=== PATIENT | female | born 1985 | race African-American/Black ===

== ENCOUNTER 2016-08-06 08:06 | Emergency (ER) | payer MEDICAID ==
[~2016-08-06] VITALS: Ht 167.6 cm; Wt 65.0 kg
[~2016-08-06 08:06] MED LIST: CYCL5TAB PO; NAPR1TAB34 PO
[2016-08-06 08:07] VITALS: BP 110/68; PULSE 80; RESP 16; TEMP 98; O2SAT 100
[2016-08-06 08:17] VITALS: BP 109/59; PULSE 70; RESP 16; TEMP 98.6; O2SAT 99
--- NOTE | 2016-08-06 08:24 | PD ---
HPI Chief Complaint: Abdominal Pain Time Seen by Provider: 08:22 Travel History International Travel<30 days: No Contact w/Intl Traveler<30days: No Traveled to known affect area: No History of Present Illness HPI 31-year-old female came to the emergency room with intense pelvic pain going to her lower back. Patient says that this pain has been there for 2 weeks but comes and goes. When the pain comes it makes her bend over double over because of the severe nature. No history of hematuria, dysuria. She did have an unprotected sex once every 10 then soon after the symptoms started. There was a bedside urine done which was negative. Vital signs are stable. Currently she seems uncomfortable. No aggravating or relieving factors. [facility] Past Medical History Narrative Medical List of her past medical, surgical, social and family history is reviewed from the nursing note. Medical History: Denies Significant Hx Cardiovascular Problems: No Diminished Hearing: No Gastrointestinal Disorders: No Genitourinary: No Musculoskeletal: No Neurologic: No Reproductive: Yes (OVLVAIAN CYST ) Respiratory: No Immunizations Current: Yes Tetanus Vaccination: Unknown ?: Unknown : 3 Para: 2 Miscarriage: 0 : 1 Past Surgical History Other Surgery: Yes (abscessed removed right arm) Social History Alcohol Use: No Tobacco Use: Yes (5 cigarettes per day) Substance Use: No Allergies-Medications (Allergen,Severity, Reaction): Coded Allergies: Lortab (Verified Adverse Reaction, Intermediate, DIZZY, 08/06/16) PT STATES SHE IS CURRENTLY TAKING. Percocet (Verified Adverse Reaction, Intermediate, DIZZY, 08/06/16) Comments List of her allergies reviewed from the nursing note. Reported Meds & Prescriptions Reported Meds & Active Scripts Active Doxycycline Hyclate 100 Mg Cap 100 Mg PO BID 7 Days Flagyl (Metronidazole) 250 Mg Tab 250 Mg PO TID 7 Days Macrobid (Nitrofurantoin Monoh/Nitrofur Macro) 100 Mg Cap 100 Mg PO BID 7 Days Naproxen EC (Naproxen) 500 Mg Tabdr 500 Mg PO BID PRN Flexeril (Cyclobenzaprine HCl) 5 Mg Tab 5 Mg PO TID PRN Narrative Medication List of her home medications reviewed from the nursing note. Review of Systems Except as stated in HPI: all other systems reviewed are Neg Physical Exam Narrative GENERAL: Awake, alert, anxious, mild distress SKIN: Warm and dry. HEAD: Atraumatic. Normocephalic. EYES: Pupils equal and round. No scleral icterus. No injection or drainage. ENT: No nasal bleeding or discharge. Mucous membranes pink and moist. NECK: Trachea midline. No JVD. CARDIOVASCULAR: Regular rate and rhythm. No murmur appreciated. RESPIRATORY: No accessory muscle use. Clear to auscultation. Breath sounds equal bilaterally. GASTROINTESTINAL: Abdomen soft, non-tender, nondistended. Hepatic and splenic margins not palpable. : External exam was within normal limits. Speculum exam showed scant discharge which was whitish with no odor in the vaginal vault. Cervix appeared to be within normal limit. Swabs were collected. Positive CMT and bilateral adnexal tenderness. MUSCULOSKELETAL: No obvious deformities. No clubbing. No cyanosis. No edema. NEUROLOGICAL: Awake and alert. No obvious cranial nerve deficits. Motor grossly within normal limits. Normal speech. PSYCHIATRIC: Appropriate mood and affect; insight and judgment normal. Data Data Last Documented VS Vital Signs Date Time Temp Pulse Resp B/P Pulse Ox O2 Delivery O2 Flow Rate FiO2 08/06/16 08:23 16 08/06/16 08:17 98.6 70 109/59 99 08/06/16 08:07 Room Air Orders Gc And Chlamydia Pcr (08/06/16 08:27) Wet Prep Profile (08/06/16 08:27) Urinalysis - C+S If Indicated (08/06/16 08:27) Ed Urine Pregnancytest Poc (08/06/16 08:27) Ceftriaxone Inj (Rocephin Inj) (08/06/16 09:15) Doxycycline (Vibramycin) (08/06/16 09:15) Urine Culture (08/06/16 08:54) Nitrofurantoin Monohyd Macrocr (Macrobid (08/06/16 10:00) Metronidazole (Flagyl) (08/06/16 10:00) Labs Laboratory Tests Test 08/06/16 08:54 Urine Color YELLOW Urine Turbidity HAZY Urine pH 6.5 Urine Specific [place] 1.026 Urine Protein TRACE mg/dL Urine Glucose (UA) NEG mg/dL Urine Ketones 10 mg/dL Urine Occult Blood NEG Urine Nitrite NEG Urine Bilirubin NEG Urine Urobilinogen 2.0 MG/DL Urine Leukocyte Esterase LARGE Urine RBC 5 /hpf Urine WBC 19 /hpf Urine Squamous Epithelial 12 /hpf Cells Urine Mucus FEW /lpf Microscopic Urinalysis Comment CULTURE INDICATED Clue Cells (Wet Prep) NONE SEEN Vaginal Trichomonas (Wet Prep) NONE SEEN Vaginal Yeast (Wet Prep) NONE SEEN Chlamydia trachomatis DNA NOT DETECTED (PCR) Neisseria gonorrhoeae DNA NOT DETECTED (PCR) MDM Medical Decision Making Medical Screen Exam Complete: Yes Emergency Medical Condition: Yes Medical Record Reviewed: Yes Differential Diagnosis STD, ovarian cyst, pelvic pain NOS Narrative Course 9:20 AM given the fact that this pain has been there for 2 weeks and patient has normal vital signs its highly unlikely it's anything surgical. Based on the fact that she has positive CMT and adnexal tenderness and patient had unprotected sex I explained to her that it would be a while to go ahead and get her treated for STD which she agreed. Awaiting for the urine analysis. Patient will be discharged home at least on doxycycline prescription. She was given a dose of ceftriaxone IM and one by mouth doxycycline dose here. 9:49 AM UA was positive for UTI. She'll be discharged home on antibiotic prescriptions. Procedures EKG Prior to Arrival: No Diagnosis Primary Impression: UTI (urinary tract infection) Qualified Code: N39.0 - Urinary tract infection without hematuria, site unspecified Additional Impressions: Pelvic pain PID (acute pelvic inflammatory disease) Referrals: Primary Care Physician 1 week Additional Instructions: Please return to the ER if the condition worsens or any other new concerns. Please take the medication as per the prescription direction. Do not have unprotected intercourse for next 2 weeks. If the swabs come back positive he will be called to be notified at which point her partner should be treated as well. Med/Other Pt SpecificInfo: Prescription(s) given Scripts Doxycycline Hyclate 100 Mg [id number] Mg PO BID 7 Days Ref 0 Prov:Gabriel Cuadra MD 08/06/16 Metronidazole (Flagyl)250 Mg Mgn515 Mg PO TID 7 Days Ref 0 Prov:Gabriel Cuadra MD 08/06/16 Nitrofurantoin Monohydrate Macrocrystals (Macrobid)100 Mg Stq291 Mg PO BID 7 Days Ref 0 Prov:Gabriel Cuadra MD 08/06/16 Disposition: DISCHARGE HOME Condition: Stable Gabriel Cuadra MD Aug 06, 2016 08:23
[2016-08-06] MEDS ORDERED: DOXYCYCLINE HYCLATE 100 MG CAP PO ONE (09:15)
[2016-08-06] MEDS ORDERED: cefTRIAXone 250 MG VIAL IM ONE (09:15)
[2016-08-06 09:22] LABS: BLOOD, URINE NEG (NEG); COMMENT (UR) CULTURE INDICATED; CULTURE IF INDICATED CULTURE INDICATED; GLUCOSE,URINE NEG (NEG); KETONE, URINE 10 mg/dL (NEG); MUCUS URINE FEW /lpf (OCC); NITRITE,URINE NEG (NEG); PH, URINE 6.5 (5.0-8.5); SQUAMOUS EPITHELIAL CELL URINE 12 /hpf (0-5); URINE COLOR YELLOW (YELLW/STRAW)
[2016-08-06] MEDS ORDERED: MACR100C2 PO (09:51)
[2016-08-06] MEDS ORDERED: DOXY100C PO (09:51)
[2016-08-06] MEDS ORDERED: METR250 PO (09:51)
[2016-08-06] MEDS ORDERED: metroNIDAZOLE 250 MG TAB PO ONE (10:00)
[2016-08-06] MEDS ORDERED: NITROFURANTOIN MONOHYD MACROCR 100 MG CAP PO ONE (10:00)
[2016-08-06 11:34] LABS: CHLAMYDIA PCR NOT DETECTED (NOT DETECT); NEISSERIA PCR NOT DETECTED (NOT DETECT)
== END 2016-08-06 10:37 | disposition home or self-care (01) ==
LOC: NEPC 08:06
DX: N39.0 Urinary tract infection, site not specified (principal); N73.9 Female pelvic inflammatory disease, unspecified
CPT/HCPCS: 81001; 84703; 87086; 87210; 87491; 87591; 96372; 99284; J0696

== ENCOUNTER 2016-12-04 18:24 | Emergency (ER) | payer MEDICAID ==
[~2016-12-04] VITALS: Ht 167.6 cm; Wt 70.0 kg
[~2016-12-04 18:24] MED LIST changes: +DOXY100C PO; +MACR100C2 PO; +METR250 PO
[2016-12-04 18:27] VITALS: BP 138/70; PULSE 95; RESP 22; TEMP 98.3; O2SAT 98
[2016-12-04] MEDS ORDERED: FLUTICASONE PROPIONATE 50 MCG/ACT 16 GM NASAL SPRAY NASAL ONE (19:00)
[2016-12-04] MEDS ORDERED: FLUT1SPR5 EACH NARE (19:00)
[2016-12-04] MEDS ORDERED: OXYMETAZOLINE HCL 0.05% 15 ML NASAL SPRAY NASAL ONE (19:00)
--- NOTE | 2016-12-04 19:04 | PD ---
HPI Chief Complaint: Respiratory Symptoms Time Seen by Provider: 18:50 Travel History International Travel<30 days: No Contact w/Intl Traveler<30days: No Traveled to known affect area: No History of Present Illness HPI This is a 31-year-old female who presents for evaluation of nasal congestion, sneezing, nasal pain. She reports that yesterday evening she was cleaning her apartment with bleach and another chemical that contained ammonia. She was cleaning in a poorly ventilated area for about 2 hours. She developed a burning sensation in her nostrils and nasal congestion and nasal sneezing. Symptoms have persisted throughout the day which prompted evaluation today. Denies any chest pain or shortness of breath, cough, fevers or chills, abdominal pain. She tried using Zyrtec once 2 hours ago but symptoms persisted. She has no other complaints. PFSH Past Medical History Cardiovascular Problems: No Diminished Hearing: No Gastrointestinal Disorders: No Genitourinary: No Musculoskeletal: No Neurologic: No Reproductive: Yes (OVLVAIAN CYST ) Respiratory: No Immunizations Current: Yes Tetanus Vaccination: < 5 Years Influenza Vaccination: No ?: Unknown LMP: 11/22/16 : 3 Para: 2 Miscarriage: 0 : 1 Past Surgical History Other Surgery: Yes (abscessed removed right arm) Social History Alcohol Use: No Tobacco Use: No Substance Use: No Allergies-Medications (Allergen,Severity, Reaction): Coded Allergies: No Known Allergies (Unverified , 12/04/16) Reported Meds & Prescriptions Reported Meds & Active Scripts Active Flonase Nasal [place] (Fluticasone Nasal [place]) 50 Mcg/Act [place] 100 Mcg EACH NARE BID Doxycycline Hyclate 100 Mg Cap 100 Mg PO BID 7 Days Flagyl (Metronidazole) 250 Mg Tab 250 Mg PO TID 7 Days Macrobid (Nitrofurantoin Monoh/Nitrofur Macro) 100 Mg Cap 100 Mg PO BID 7 Days Naproxen EC (Naproxen) 500 Mg Tabdr 500 Mg PO BID PRN Flexeril (Cyclobenzaprine HCl) 5 Mg Tab 5 Mg PO TID PRN Review of Systems Except as stated in HPI: all other systems reviewed are Neg Physical Exam Narrative GENERAL: Well-developed well-nourished female in no acute distress SKIN: Warm and dry. HEAD: Atraumatic. Normocephalic. EYES: Pupils equal and round. No scleral icterus. No injection or drainage. ENT: No nasal bleeding or discharge. Mucous membranes pink and moist. Some irritation of the nasal turbinates is noted. There is no oropharyngeal erythema or exudate. NECK: Trachea midline. No JVD. CARDIOVASCULAR: Regular rate and rhythm. No murmur appreciated. RESPIRATORY: No accessory muscle use. Clear to auscultation. Breath sounds equal bilaterally. No crackles no wheezing or rhonchi GASTROINTESTINAL: Abdomen soft, non-tender, nondistended. Hepatic and splenic margins not palpable. MUSCULOSKELETAL: No obvious deformities. No edema. NEUROLOGICAL: Awake and alert. No obvious cranial nerve deficits. Motor grossly within normal limits. Normal speech. PSYCHIATRIC: Appropriate mood and affect; insight and judgment normal. Data Data Last Documented VS Vital Signs Date Time Temp Pulse Resp B/P Pulse Ox O2 Delivery O2 Flow Rate FiO2 12/04/16 18:49 18 99 Room Air 12/04/16 18:27 98.3 95 138/70 Orders Oxymetazoline 0.05% Sunny [place] (Afrin 0.0 (12/04/16 19:00) Fluticasone Sunny Spr (Flonase Sunny Spr) (12/04/16 19:00) [facility] Medical Decision Making Medical Screen Exam Complete: Yes Emergency Medical Condition: Yes Medical Record Reviewed: Yes Differential Diagnosis Chemical rhinitis, allergic rhinitis, viral rhiniti Narrative Course 31-year-old female with nostril irritation and congestion and sneezing which started after cleaning her apartment with bleach and ammonia based chemicals last night. She has no shortness of breath or pulmonary symptoms. Her lungs sound clear. She appears to have some rhinitis secondary to the chemicals. She used an H1 antihistamine prior to arrival. She will be given Flonase and Afrin for symptom relief. She'll be discharged with a prescription for Flonase. Diagnosis Primary Impression: Rhinitis Qualified Code: J00 - Other acute rhinitis Additional Instructions: Flonase as prescribed. Continue using Zyrtec on a daily basis. Use over-the- counter Sudafed. Use [id number] Afrin. Do not use Afrin for greater than 3 days. Follow-up with primary care physician as needed. Return for any emergent medical conditions. Med/Other Pt SpecificInfo: Prescription(s) given Scripts Fluticasone Nasal [place] (Flonase Nasal [place])50 Mcg/Act [id number] Mcg EACH NARE BID #1 BOTTLE Ref 0 Prov:Merari Serrano DO 12/04/16 Disposition: 01 DISCHARGE HOME Condition: Stable Edmundo Dorado Dec 04, 2016 19:04
== END 2016-12-04 20:50 | disposition home or self-care (01) ==
LOC: NEPE 18:24
DX: J31.0 Chronic rhinitis (principal); Z79.899 Other long term (current) drug therapy
CPT/HCPCS: 99283

== ENCOUNTER 2017-01-27 09:05 | Emergency (ER) | payer MEDICAID ==
[~2017-01-27] VITALS: Ht 167.6 cm; Wt 67.2 kg
[~2017-01-27 09:05] MED LIST changes: +FLUT1SPR5 EACH NARE
[2017-01-27 09:06] VITALS: BP 147/66; PULSE 102; RESP 20; TEMP 98.6; O2SAT 100
[2017-01-27 09:20] VITALS: BP 105/70; PULSE 70; RESP 16; O2SAT 98
--- NOTE | 2017-01-27 09:40 | PD ---
HPI Chief Complaint: Related Problem Time Seen by Provider: 09:22 Travel History International Travel<30 days: No Contact w/Intl Traveler<30days: No Traveled to known affect area: No History of Present Illness HPI The patient was seen and examined in the presence of the nurse. This patient reports that she is approximately 5 weeks . She went to the crisis center 2 weeks ago had a positive frenzy test. She's missed one menstrual period. She comes in today because she's had 3 days of left sided pelvic cramping and low mid back pain. No fall or injury. No fever. No vaginal discharge or bleeding. Severity is moderate. No alleviating factors. She did report some dysuria 2 days ago but that seems to have resolved. PFSH Past Medical History Cardiovascular Problems: No Diminished Hearing: No Gastrointestinal Disorders: No Genitourinary: No Musculoskeletal: No Neurologic: No Reproductive: Yes (OVLVAIAN CYST ) Respiratory: No Immunizations Current: Yes Tetanus Vaccination: > 5 Years Influenza Vaccination: No ?: LMP: 12/15/16 : 4 Para: 2 Miscarriage: 0 : 1 Past Surgical History Other Surgery: Yes (abscessed removed right arm) Social History Alcohol Use: No Tobacco Use: No (QUIT 2 WEEKS AGO ) Substance Use: No Allergies-Medications (Allergen,Severity, Reaction): Coded Allergies: No Known Allergies (Unverified , 01/27/17) Reported Meds & Prescriptions Reported Meds & Active Scripts Active Review of Systems Gastrointestinal: Positive: Nausea Genitourinary: Positive: Pelvic Pain Musculoskeletal: Positive: Pain Physical Exam Narrative GENERAL: Well-nourished, well-developed patient in no apparent distress. SKIN: Focused skin assessment reveals no rash and nodules. Skin is Warm and dry. HEAD: Atraumatic. Normocephalic. EYES: Pupils equal and round. No scleral icterus. No injection or drainage. ENT: No nasal bleeding or discharge. Mucous membranes pink and moist. NECK: Trachea midline. No JVD. CARDIOVASCULAR: Regular rate and rhythm. No murmur appreciated. RESPIRATORY: No accessory muscle use. Clear to auscultation. Breath sounds equal bilaterally. GASTROINTESTINAL: Abdomen soft, some left lower quadrant tenderness without rebound or guarding, nondistended. Hepatic and splenic margins not palpable. MUSCULOSKELETAL: No obvious deformities. No clubbing. No cyanosis. No edema. No objective findings on back exam NEUROLOGICAL: Awake and alert. No obvious cranial nerve deficits. Motor grossly within normal limits. Normal speech. PSYCHIATRIC: Appropriate mood and affect; insight and judgment normal. Pelvic: Cervix is closed without motion tenderness. No blood in the vault. No adnexal mass Data Data Last Documented VS Vital Signs Date Time Temp Pulse Resp B/P (MAP) Pulse Ox O2 Delivery O2 Flow Rate FiO2 01/27/17 09:20 70 16 105/70 (82) 98 01/27/17 09:06 98.6 Room Air Orders Orders Urinalysis - C+S If Indicated (01/27/17 09:28) Iv Access Insert/Monitor (01/27/17 09:36) Complete Blood Count With Diff (01/27/17 09:36) Beta Hcg (Quant/Titer) (01/27/17 09:36) Us Pelvis (Ques Pr/Ect)W Trans (01/27/17 ) Labs Laboratory Tests Test 01/27/17 09:06 01/27/17 09:30 White Blood Count 4.4 TH/MM3 Red Blood Count 4.05 MIL/MM3 Hemoglobin 12.3 GM/DL Hematocrit 36.6 % Mean Corpuscular Volume 90.3 FL Mean Corpuscular Hemoglobin 30.4 PG Mean Corpuscular Hemoglobin Concent 33.6 % Red Cell Distribution Width 13.3 % Platelet Count 160 TH/MM3 Mean Platelet Volume 9.2 FL Neutrophils (%) (Auto) 55.7 % Lymphocytes (%) (Auto) 33.0 % Monocytes (%) (Auto) 8.0 % Eosinophils (%) (Auto) 2.2 % Basophils (%) (Auto) 1.1 % Neutrophils # (Auto) 2.5 TH/MM3 Lymphocytes # (Auto) 1.5 TH/MM3 Monocytes # (Auto) 0.4 TH/MM3 Eosinophils # (Auto) 0.1 TH/MM3 Basophils # (Auto) 0.1 TH/MM3 CBC Comment DIFF FINAL Differential Comment Human Chorionic Gonadotropin, Quant 30740 MIU/ML Urine Color YELLOW Urine Turbidity HAZY Urine pH 7.0 Urine Specific [place] 1.026 Urine Protein TRACE mg/dL Urine Glucose (UA) NEG mg/dL Urine Ketones TRACE mg/dL Urine Occult Blood NEG Urine Nitrite NEG Urine Bilirubin NEG Urine Urobilinogen LESS THAN 2.0 MG/DL Urine Leukocyte Esterase MOD Urine RBC 5 /hpf Urine WBC 5 /hpf Urine Squamous Epithelial Cells 16 /hpf Urine Mucus FEW /lpf Urine Yeast (Budding) RARE Microscopic Urinalysis Comment CULT NOT INDICATED MDM Medical Decision Making Medical Screen Exam Complete: Yes Emergency Medical Condition: Yes Medical Record Reviewed: Yes Differential Diagnosis Ectopic , threatened , UTI Narrative Course I have reviewed the patient's electronic medical record. Has had 2 vaginal births, healthy children I did a bedside transabdominal ultrasound to attempt to rule out ectopic I was not able to identify an intrauterine fetus Therefore IV placed CBC is normal Beta hCG is 10,577 UA is clean and not indicating culture I've ordered a formal transvaginal ultrasound to rule out ectopic. Ultrasound reveals a 5 week 4 day gestational sac in the uterus but no pole is seen. I reviewed this with the patient. Certainly no guarantee that this is a normal healthy developing fetus. We have ruled out ectopic but this could be a blighted ovum She should follow-up with OB physician for evaluation and discussion of these results. Return if worse She asked for nausea prescription I have written some Phenergan and warned her about potential sedation She accepts category C risk of the medication Diagnosis Primary Impression: Pelvic pain affecting in first trimester, antepartum Additional Impression: Nausea and vomiting Qualified Codes: R11.2 - Nausea with vomiting, unspecified Additional Instructions: The patient was advised to follow up with their physician and return if they worsen. The patient was warned about potential sedation for the medications they will receive on prescription. Med/Other Pt SpecificInfo: Prescription(s) given Scripts Promethazine (Phenergan) 25 Mg Tablet 12.5 MG PO Q6H Y for NAUSEA OR VOMITING, #15 TAB 0 Refills Prov: Pramod Bowen MD 01/27/17 Disposition: DISCHARGE HOME Condition: Stable Pramod Bowen MD Jan 27, 2017 09:40
[2017-01-27 09:53] LABS: BLOOD, URINE NEG (NEG); COMMENT (UR) CULT NOT INDICATED; CULTURE IF INDICATED CULT NOT INDICATED; GLUCOSE,URINE NEG (NEG); KETONE, URINE TRACE mg/dL (NEG); MUCUS URINE FEW /lpf (OCC); NITRITE,URINE NEG (NEG); SQUAMOUS EPITHELIAL CELL URINE 16 /hpf (0-5); URINE COLOR YELLOW (YELLW/STRAW)
[2017-01-27 10:15] LABS: AUTOMATED NEUTROPHIL # 2.5 TH/MM3 (1.8-7.7); BASOPHIL # 0.1 TH/MM3 (0-0.2); BASOPHIL % 1.1 % (0.0-2.0); EOSINOPHIL # 0.1 TH/MM3 (0-0.4); EOSINOPHIL % 2.2 % (0.0-4.0); HEMATOCRIT 36.6 % (35.0-46.0); HEMO FLAGS DIFF FINAL; LYMPHOCYTE # 1.5 TH/MM3 (1.0-4.8); MEAN CELL VOLUME 90.3 FL (80.0-100.0); MEAN CORPUSCULAR HEMOGLOBIN 30.4 PG (27.0-34.0); MEAN CORPUSCULAR HGB CONC 33.6 % (32.0-36.0); NEUT % 55.7 % (16.0-70.0); PLATELET COUNT 160 TH/MM3 (150-450); RED BLOOD COUNT 4.05 MIL/MM3 (4.00-5.30); RED CELL DISTRIBUTION WIDTH 13.3 % (11.6-17.2); WHITE BLOOD COUNT 4.4 TH/MM3 (4.0-11.0)
[2017-01-27 10:40] LABS: BETA HCG QUANT 10677 MIU/ML (0-5)
--- NOTE | 2017-01-27 11:50 | RADRPT ---
EXAM DATE/TIME: 01/27/2017 11:01 [facility] COMPARISON: US PELVIS (QUEST PREG/ECTOPIC) W/TRANSVAG, October 08, 2013, 16:36. INDICATIONS : Pelvic pain. LAB(S): Beta-hC,677 MEDICAL HISTORY : . SURGICAL HISTORY : Cyst removed from arm. ENCOUNTER: Initial ACUITY: 3 days PAIN SCORE: 4/10 LOCATION: Bilateral pelvis MEASUREMENTS: RIGHT OVARY: 3.9 x 1.6 x 2.3cm UTERUS: 11.2 x 5.1 x 5.7 cm ENDOMETRIAL STRIPE: 11 mm LEFT OVARY: 3.5 x 2.0 x 2.2 cm FREE FLUID: Yes Posterior cul-de-sac CROWN RUMP LENGTH: Non-visualized = WKS DAYS FHR: Non-visualized BPM FINDINGS: UTERUS: The myometrium has homogeneous echotexture without mass. A gestational sac is identified measuring 1 .7 x 0.1 0.8 cm corresponding to a gestational age of 5 weeks and 4 days. A yolk sac is present but I do not identify a pole. RIGHT OVARY: Ovary contains no mass or significant cystic lesion. LEFT OVARY: Complex cystic area in the left ovary measures 1.7 x 1.3 x 1.6 cm and may represent an involuting cor pus luteum MISCELLANEOUS: Small amount of free fluid in the cul-de-sac. CONCLUSION: 1. Intrauterine gestational sac. Yolk sac is present there is no identifiable pole. With the el evated beta hCG, this is concerning for a possible blighted ovum. 2. Complex 1.7 cm cystic structure left ovary likely representing the involuting corpus luteum. Small amount of free fluid in the deep pelvis. Mark Koo MD on January 27, 2017 at 11:44 Board Certified Radiologist. This report was verified electronically.
[2017-01-27] MEDS ORDERED: PROM25TA10 PO (11:59)
[2017-01-27 12:06] VITALS: BP 119/63
== END 2017-01-27 12:08 | disposition home or self-care (01) ==
LOC: NEPD 09:05
DX: O21.0 Mild hyperemesis gravidarum (principal); Z3A.01 Less than 8 weeks gestation of pregnancy; R10.2 Pelvic and perineal pain
CPT/HCPCS: 76700; 76817; 81001; 84702; 85025; 99284